=== PATIENT | female | born 1985 | race African-American/Black ===

== ENCOUNTER 2021-06-08 18:01 | Inpatient (IN) | payer BC ==
[2021-06-08] MEDS ORDERED: PROMETHAZINE 25 MG TAB PO PRN (18:50)
[2021-06-08] MEDS ORDERED: ONDANSETRON 4 MG/2 ML INJ IV PRN (18:50)
[2021-06-08] MEDS ORDERED: diphenhydrAMINE 50 MG/ML VIAL IV PRN (18:50)
[2021-06-08] MEDS ORDERED: NalbUPHINE 10 MG/1 ML INJ IV PRN (18:50)
[2021-06-08] MEDS ORDERED: NALOXONE 0.4 MG/1 ML INJ IV PRN ×2 (18:50→23:46)
[2021-06-08] MEDS ORDERED: HYDROmorphone 1 MG/1 ML INJ IV PRN (18:50)
[2021-06-08] MEDS ORDERED: PROMETHAZINE 25 MG RECT SUPP PR PRN (18:50)
[2021-06-08] MEDS ORDERED: FAMOTIDINE 20 MG/2 ML INJ IV ONE (18:51)
[2021-06-08] MEDS ORDERED: AZITHROMYCIN/NS 500 MG/250 ML 500 MG/250 ML BAG IV ONE (18:51)
[2021-06-08] MEDS ORDERED: BICITRA ORAL LIQD 30ML PO ONE (18:51)
[2021-06-08] MEDS ORDERED: METOCLOPRAMIDE 10 MG/2 ML INJ IV ONE (18:51)
[2021-06-08] MEDS ORDERED: OXYTOCIN DRIP 30 UNITS/500 ML BAG IV SCH ×2 (19:00→23:46)
[2021-06-08] MEDS ORDERED: ceFAZolin/Water 2 GM/20 ML 2 GM/20 ML SYRINGE IV NR (19:00)
[2021-06-08] MEDS ORDERED: LACTATED RINGERS 1,000 ML IV SCH (19:00)
--- NOTE | 2021-06-08 19:02 | History and Physical Report ---
History of Present Illness Date of examination: 06/08/21 Date of admission: 06/08/2021 Chief complaint: "I am having pains in my lower abdomen" History of present illness: EDC Confirmation: 06/18/2021 Past History : 4 Term Births: 2 Premature Births: 0 Living Children: 2 Para: 2 Mult. Births: 0 Prev : 2 Prev. attempt? none Aborta: 1 Elect. Ab: 0 Spont. Ab: 1 Ectopics: 0 # 1 Delivery date: 2012 Weeks Gestation: 38 Delivery type: Delivery location: [facility] Sex: Male weight: 3kg Comments: classical skin incision; unsure of uterine incision # 2 Delivery date: 2013 Weeks Gestation: 40 Delivery type: Delivery location: [facility] Infant Sex: Female weight: 2.5kg Comments: low BP, "received injections during delivery"; told not to conceive for 4-5 years # 3 Delivery date: 2017 Weeks Gestation: 10 Delivery type: SAB Delivery location: [facility] Comments: medically managed Family History Summary: Reviewed history and no changes required: 11/09/2020 Social History: Reviewed history and no changes required: Yarsanism Belief Affecting Care- prefers female providers, if possible Smoking History: Patient has never smoked. Past Medical History: Reviewed history and no changes required: Negative Past Medical History Past Surgical History: Reviewed history and no changes required: 2012 2014 Past Medical History Anesthesia Complications: negative Anemia: negative Autoimmune Disorder: negative Bleeding Disorder: negative Blood Transfusions: negative Breast Disease: negative Diabetes: negative Heart Disease: negative Hypertension: negative Hepatitis/Liver Disease: negative Kidney Disease/UTI: negative Neurologic/Epilepsy/Migraines: negative Phlebitis/Varicosities: negative Psychiatric: negative Pulmonary Disease/Asthma: negative Thyroid Disease: negative Hospitalizations: negative Surgery (Non-nursing officer): 2012 2014 Abnormal PAP: negative JAMEL Exposure: negative Infertility: negative Uterine Anomaly: negative Uterine Surgery (not C/S): negative Other Gynecologic Problems: negative Social Hx: Yarsanism Belief Affecting Care- prefers female providers, if possible Smoking History: Patient has never smoked. Infection History Hx of STD: none HIV Risk Eval: no Hepatitis B Risk Eval: low risk Personal hx. of genital herpes: no Partner hx. of genital herpes: no Rash, Viral, or Febrile illness since last LMP? no Varicella/Chicken Pox Status: Unknown TB Risk: no Genetic History Congenital Heart Defect: Mom: no Dad: no Eladio Disease: Mom: no Dad: no Thalassemia Mom: no Dad: no Neural Tube Defect Mom: no Dad: no Down's Syndrome Mom: no Dad: no Derik-Sachs Mom: no Dad: no Sickle Cell Disease/Trait Mom: no Dad: no Hemophilia Mom: no Dad: no Muscular Dystrophy Mom: no Dad: no Cystic Fibrosis Mom: no Dad: no Anjum Chorea Mom: no Dad: no Mental Retardation Mom: no Dad: no Fragile X Mom: no Dad: no Other Genetic/Chromosomal Disorder Mom: no Dad: no Child w/other defect Mom: no Dad: no Enviromental Exposures Enviromental Exposures Reviewed Xray Exposure: no Medication, drug, or alcohol use since LMP: no Chemical/Other Exposure: no Exposure to Cat Liter: no Hx of Parvovirus (Fifth Disease): no 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 Medications: None Current Allergies: No known allergies Past History Past Medical History: other (see HPI) Past Surgical History: other (see HPI) VP COMMUNICATIONS History: other (see HPI) Family/Genetic History: other (see HPI) Social history: other (see HPI) - Obstetrical History Expected Date of Delivery: 06/18/21 Actual Gestation: 38 Week(s) 4 Day(s) : 4 Para: 2 Hx # Term Pregnancies: 2 Number of Pregnancies: 0 Spontaneous Abortions: 1 Induced : 0 Number of Living Children: 2 Medications and Allergies Allergies Allergy/AdvReac Type Severity Reaction Status Date / Time No Known Allergies Allergy Unverified 06/08/21 18:28 Active Meds: Active Medications Citric Acid/Sodium Citrate (Bicitra Oral Liqd 30ml) 30 ml PO ONCE ONE Stop: 06/08/21 18:52 Diphenhydramine HCl (Diphenhydramine 50 Mg/Ml Vial) 12.5 mg IV Q2H PRN PRN Reason: Itching Famotidine (Famotidine 20 Mg/2 Ml Inj) 20 mg IV ONCE ONE Stop: 06/08/21 18:52 Hydromorphone HCl (Hydromorphone 1 Mg/1 Ml Inj) 0.5 mg IV Q4H PRN PRN Reason: breakthrough pain > 7/10 Azithromycin (Zithromax/Ns) 500 mg in 250 mls @ 250 mls/hr IV ONCE ONE; Protocol Stop: 06/08/21 19:50 Cefazolin Sodium (Ancef/Sterile Water 2 Gm/20 Ml) 2 gm in 20 mls @ 80 mls/hr IV PREOP NR; Protocol Lactated Ringer's (Lactated Ringers) 1,000 mls @ 2,250 mls/hr IV PREOP YANA Stop: 06/09/21 19:27 Oxytocin/Sodium Chloride (Pitocin/Ns 30 Unit/500ml) 30 units in 500 mls @ 0 mls/hr IV TITR YANA; Protocol Metoclopramide HCl (Metoclopramide 10 Mg/2 Ml Inj) 10 mg IV ONCE ONE Stop: 06/08/21 18:52 Nalbuphine HCl (Nalbuphine 10 Mg/1 Ml Inj) 2.5 mg IV Q2H PRN PRN Reason: Itching Naloxone HCl (Naloxone 0.4 Mg/1 Ml Inj) 0.2 mg IV Q2MIN PRN PRN Reason: Res Rate </= 8 or 02 SAT < 92% Ondansetron HCl (Ondansetron 4 Mg/2 Ml Inj) 4 mg IV Q8H PRN PRN Reason: Nausea And Vomiting Promethazine HCl (Promethazine 25 Mg Tab) 25 mg PO Q6H PRN PRN Reason: Nausea And Vomiting Promethazine HCl (Promethazine 25 Mg Rect Supp) 25 mg ND Q6H PRN PRN Reason: Nausea And Vomiting Review of Systems All systems: negative Genitourinary: contractions - Vital Signs Vital signs: Vital Signs Temp Resp 98.1 F 18 06/08/21 18:40 06/08/21 18:40 Temp Pulse Resp BP Pulse Ox 98.1 F 47 L 18 133/77 98 06/08/21 18:40 06/08/21 18:50 06/08/21 18:40 06/08/21 18:50 06/08/21 18:45 - Physical Exam Breasts: Positive: normal Cardiovascular: Regular rate Lungs: Positive: Normal air movement Abdomen: Positive: normal appearance, other (gravid) Genitourinary (Female): Positive: normal external genitalia, normal perenium Vulva: both: normal Vagina: Positive: normal moisture Uterus: Positive: normal size, normal contour Anus/Rectum: Positive: normal perianal skin Extremities: Positive: normal - Obstetrical FHR: auscultation normal, category 1 Uterine Contraction Monitor Mode: Palpation Cervical Dilatation: 3 Uterine Contraction Pattern: Regular Uterine Contraction Intensity: Moderate Results All other labs normal. Tests: (1) RPR, Rfx Qn RPR/Confirm TP ([id number]) RPR Non Reactive Non Reactive *1 Tests: (2) HIV Ag/Ab with Reflex ([id number]) HIV Screen 4th Generation wRfx Non Reactive Non Reactive *2 Tests: (1) Ct, Ng, Trich vag by BLAKE ([id number]) Order Note: Clinical Information: SRC:VR SRC:UR Chlamydia by BLAKE Negative Negative *1 Gonococcus by BLAKE Negative Negative *2 Trich vag by BLAKE Negative Negative *3 Tests: (2) Strep Gp B BLAKE ([id number]) ! Strep Gp B BLAKE Negative Negative *4 Tests: (1) Profile I ([id number]) Order Note: Clinical Information: SRC:UR HBsAg Screen Negative Negative *1 RPR Non Reactive Non Reactive *2 Rubella Antibodies, IgG 7.58 index Immune >0.99 *3 Non-immune <0.90 Equivocal 0.90 - 0.99 Immune >0.99 ABO Grouping O *4 Rh Factor Positive *5 Please note: Prior records for this patient's ABO / Rh type are not available for additional verification. Antibody Screen Negative Negative *6 WBC 7.3 x10E3/uL 3.4-10.8 *7 RBC [L] 3.70 x10E6/uL 3.77-5.28 *8 Hemoglobin [L] 10.3 g/dL 11.1-15.9 *9 Hematocrit [L] 31.2 % 34.0-46.6 *10 MCV 84 fL 79-97 *11 MCH 27.8 pg 26.6-33.0 *12 MCHC 33.0 g/dL 31.5-35.7 *13 RDW 13.1 % 11.7-15.4 *14 Platelets 176 x10E3/uL 150-450 *15 Neutrophils 72 % Not Estab. *16 Lymphs 20 % Not Estab. *17 Monocytes 7 % Not Estab. *18 Eos 1 % Not Estab. *19 Basos 0 % Not Estab. *20 ! Immature Cells <No Reported Value> *21 Neutrophils (Absolute) 5.2 x10E3/uL 1.4-7.0 *22 Lymphs (Absolute) 1.4 x10E3/uL 0.7-3.1 *23 Monocytes(Absolute) 0.5 x10E3/uL 0.1-0.9 *24 Eos (Absolute) 0.1 x10E3/uL 0.0-0.4 *25 Baso (Absolute) 0.0 x10E3/uL 0.0-0.2 *26 ! Immature Granulocytes 0 % Not Estab. *27 ! Immature Grans (Abs) 0.0 x10E3/uL 0.0-0.1 *28 ! NRBC <No Reported Value> *29 Hematology Comments: <No Reported Value> *30 Tests: (2) HB Solu + Rflx Frac ([id number]) Hemoglobin (Hgb) Solubility Negative Negative *31 Tests: (3) HIV Ag/Ab with Reflex ([id number]) HIV Screen 4th Generation wRfx Non Reactive Non Reactive *32 Tests: (4) HCV Ab w/Rflx to Verification ([id number]) ! HCV Ab <0.1 s/co ratio 0.0-0.9 *33 Tests: (5) Comment: ([id number]) ! Comment: SPRCS *34 Non reactive HCV antibody screen is consistent with no HCV infection, unless recent infection is suspected or other evidence exists to indicate HCV infection. Tests: (6) Urine Culture, Routine ([id number]) Urine Culture, Routine Final report *35 Tests: (7) Result ([id number]) ! Result 1 No growth *36 Ultrasound: report reviewed, image reviewed (in office on 06/06/21 EFW 14% 6lbs 2oz, MOON 12, vertex), other Assessment and Plan @38w4d [place] presents to triage with c/o regular painful contractions since 1000 today. SVE 3cm per RN, Cat 1 FHT's with regular contractions palpable at bedside. Pt with H/O delivery x2 in Jo and vertical skin incisional scar noted. POC d/w pt for delivery. Consents signed and in chart. Pt verbalizes understanding of risks including but not limited to infection, bleeding, trauma, compromise, and maternal and . Pt reports she does not desire sterilization at this time and declines tubal ligation. All questions and concerns addressed. Dr. Santa made aware. Plan to proceed with delivery. Orders placed in EMR. - Patient Problems (1) 38 weeks gestation of Current Visit: Yes Status: Acute (2) Maternal care for vertical scar from previous delivery Current Visit: Yes Status: Acute (3) Active labor Current Visit: Yes Status: Acute
[2021-06-08] MEDS ORDERED: ONDANSETRON 4 MG/2 ML INJ ONE ×2 (19:04)
[2021-06-08] MEDS ORDERED: KETOROLAC 30 MG/1 ML INJ ONE (19:04)
[2021-06-08] MEDS ORDERED: BUPIVACAINE/PF (0.5%) 5 MG/1 ML 30 ML VIAL INFILTRATI ONE (19:04)
[2021-06-08] MEDS ORDERED: dexAMETHasone 20 MG/5 ML VIAL ONE (19:04)
[2021-06-08] MEDS ORDERED: METOCLOPRAMIDE 10 MG/2 ML INJ ONE (19:06)
--- NOTE | 2021-06-08 19:14 | Anesthesia Day of Surgery ---
Anesthesia Day of Surgery - Day of Surgery Patient Examined: Yes Patient H&P Reviewed: Yes Patient is NPO: No (Patient had milk/bread @1500) Beta Blockers: No Cardiac Clearance: No Pulmonary Clearance: No Andrzej's Test: N/A
--- NOTE | 2021-06-08 19:14 | Anesthesia Consultation ---
Anesthesia Consult and Med Hx Date of service: 06/08/21 - Airway Anesthetic Teeth Evaluation: Good ROM Head & Neck: Adequate Mental/Hyoid Distance: Adequate Mallampati Class: Class I Intubation Access Assessment: Good - Pulmonary Exam CTA: Yes - Cardiac Exam Cardiac Exam: RRR - Pre-Operative Health Status ASA Pre-Surgery Classification: ASA2 Proposed Anesthetic Plan: Spinal Nerve Block: TAP - Pulmonary Hx Smoking: No Hx Asthma: No COPD: No Hx Pneumonia: No Hx Sleep Apnea: No - Cardiovascular System Hx Hypertension: No Hx Heart Attack/AMI: No Hx Angina: No - Central Nervous System Hx Seizures: No Hx Psychiatric Problems: No - Gastrointestinal Hx Gastroesophageal Reflux Disease: No - Endocrine Hx Renal Disease: No Hx End Stage Renal Disease: No Hx Liver Disease: No Hx Insulin Dependent Diabetes: No Hx Non-Insulin Dependent Diabetes: No Hx Hypothyroidism: No Hx Hyperthyroidism: No - Hematic Hx Anemia: No Hx Sickle Cell Disease: No - Other Systems Hx Alcohol Use: No
[2021-06-08 19:18] LABS: Basophils # (Auto) 0.1 K/mm3 (0.0-0.1); Basophils % (Auto) 0.5 % (0.0-1.8); Hematocrit 36.9 % (30.3-42.9); Hemoglobin 12.4 gm/dl (10.1-14.3); Mean Corpuscular HGB Conc 34 % (30-34); Mean Corpuscular Volume 80 fl (79-97); Monocytes # (Auto) 0.5 K/mm3 (0.0-0.8); Monocytes % (Auto) 3.4 % (0.0-7.3); Platelet Count 146 K/mm3 (140-440); Red Cell Distribution Width 14.4 % (13.2-15.2)
[2021-06-08] MEDS ORDERED: ceFAZolin/STERILE WATER 2 GM/20 ML SYRINGE IV ONE (19:38)
--- NOTE | 2021-06-08 19:48 | Event Note ---
Date: 06/08/21 Discussed with patient indication for . Patient informed the risks of the surgery include bleeding possibly bleeding heavy enough to require blood transfusion, infection possible damage to bowel bladder ureter. All questions answered. Patient agrees to proceed
[2021-06-08] MEDS ORDERED: ePHEDrine SULFATE 50 MG/1 ML INJ ONE (20:02)
[2021-06-08] MEDS ORDERED: LACTATED RINGERS 1,000 ML ONE (20:02)
--- NOTE | 2021-06-08 21:21 | Operative Report ---
Operative Report Operative Report: Date of procedure: June 08, 2021 Pre-operative diagnosis: Intrauterine at 38 weeks with previous section x2 with unknown uterine scar in active labor Post-operative diagnosis: Same Procedure name(s): Low transverse section with vertical skin incision through previous vertical skin scar Surgeon: Michael Pratt MD Basic Combatant Swimmer: Ade Cruz, certified nurse juvenile counselor Anesthesia: Spinal EBL: [] Complications: None Findings: Patient with uterus was scarred to the anterior abdominal wall and filmy adhesions between the uterus and the rectus muscles anteriorly male . Weight 5 pounds 13 ounces. Apgars 8 at 1 minute and 9 at 5 minutes Specimen(s): None Procedure: The patient was brought to the operating room. A spinal was placed without any complications. She was then placed in left lateral tilt. Prepped and draped in the usual sterile manner. After testing for adequate anesthesia level, a an elliptical incision was made around the vertical scar that was present, removing that scar. This incision was taken down to the fascia. The fascial revealed permanent suture which I cut with scissors and removed. The fascia incision was then cut vertically with care not to damage internal organs. Scar tissue were sharply and bluntly removed from the rectus muscle and the anterior uterus. The rectus muscles were bluntly and sharply . The peritoneum was then entered with the presto log operator's fingers. This incision was spread vertically with care not to damage the bladder below. Bladder blade was then placed. The bladder flap was then formed sharply and bluntly with Metzenbaum scissors. A transverse incision was made in lower uterine segment. This incision was extended laterally with the operators fingers. The amniotic sac was then entered bluntly with the presto log operator's fingers. The infant was delivered from the vertex position. Bulb suction on the mother's abdomen. Cord was double clamped and cut. The infant was then passed to the nursery personnel who were in attendance. The above scores were given by the [facility] personnel. The placenta was then bluntly removed. The uterus was then externalized after lysis of adhesions and wiped clean the remaining products. The uterine incision was closed in layers. The first incision was closed in a locking manner using 0 Vicryl. This was followed by imbricating stitch also with 0 Vicryl. This closure was hemostatic after additional [id number] sutures including 1 placed on the anterior fundus.. The bladder flap was copiously irrigated and found to be hemostatic. The pelvis was copiously irrigated and found to be hemostatic. The uterus was then placed back to the patient's abdomen. Surgicel was placed along the uterine closure and the fundal repair of the serosa area. The retractors were removed. The rectus muscles were inspected and found to be hemostatic. The fascia was then closed in a running manner using 0 Vicryl. This incision was hemostatic irrigation Bovie. DM space under the skin incision was then reapproximated with 0 Vicryl. The skin was reapproximated with 4-0 Vicryl subcuticularly. Dermabond was placed on the incision. The patient tolerated procedure well. Her urine was clear. The infant was admitted to the [well baby] nursery. The patient was accompanied to recovery room in good condition. Instrument count correct x3.
--- NOTE | 2021-06-08 21:21 | Progress Note ---
Spinal Anesthesia Block - Spinal Anesthesia Block Start Time: 19:38 Stop Time: 19:50 Performed by:: ACACIA POP Procedure: Spinal anesthesia block is being performed for [C/S]. H&P, labs have been reviewed. Patient's questions and concerns have been answered. Informed consent has been performed. Timeout has was performed. Patient in sitting position on side of bed. Sterile prep and drape was performed. 3 mL 1% lidocaine skin wheal at L [3]-L [4]. Needle introducer advanced. 25-gauge spinal needle advanced, [+] CSF [-] blood. [Marcaine 10mg and Precedex 5mcg] Spinal dose was given. All needles removed. Patient tolerated procedure well.
[2021-06-08] MEDS ORDERED: WITCH HAZEL/ GLYCERIN PAD TP PRN (23:46)
[2021-06-08] MEDS ORDERED: MAGNESIUM HYDROXIDE (MOM) ORAL LIQD UDC PO PRN (23:46)
[2021-06-08] MEDS ORDERED: HYDROCORTISONE 25 MG RECTAL SUPP PR PRN (23:46)
[2021-06-08] MEDS ORDERED: oxyCODONE /ACETAMINOPHEN 5-325MG TAB PO PRN (23:46)
[2021-06-08] MEDS ORDERED: LANOLIN/ZINC/DIMETHICONE (LANSINOH) 7 GM TP PRN (23:46)
[2021-06-08] MEDS ORDERED: SENNOSIDES 8.6 MG TAB PO PRN (23:46)
[2021-06-09] MEDS: KETOROLAC 30 MG/1 ML INJ IV SCH ×4 (00:05→19:00)
[2021-06-09] MEDS: D5W/LACTATED RINGERS 1,000 ML IV SCH ×2 (00:05→08:30)
[2021-06-09] MEDS: ceFAZolin/NS 1 GM/50 ML 1 GM/50 ML BAG IV SCH ×2 (02:58→10:54)
--- NOTE | 2021-06-09 09:44 | Progress Note ---
Assessment and Plan Pt sitting in bed with sister present at bedside. No complaints verbalized. VSS and H&H stable postop; Fundus firm with scant vaginal bleeding noted on juan manuel- pad; incision healing well, dry and intact. POC d/w pt and postop pathway expectations encouraged. All questions and concerns addressed. - Patient Problems (1) delivery delivered Current Visit: Yes Status: Acute Plan to address problem: continue postop pathway Subjective - Subjective Date of service: 06/09/21 Principal diagnosis: POD #1 Interval history: EDC Confirmation: 06/18/2021 Past History : 4 Term Births: 2 Premature Births: 0 Living Children: 2 Para: 2 Mult. Births: 0 Prev : 2 Prev. attempt? none Aborta: 1 Elect. Ab: 0 Spont. Ab: 1 Ectopics: 0 # 1 Delivery date: 2012 Weeks Gestation: 38 Delivery type: Delivery location: [facility] Infant Sex: Male weight: 3kg Comments: classical skin incision; unsure of uterine incision # 2 Delivery date: 2013 Weeks Gestation: 40 Delivery type: Delivery location: [facility] Sex: Female weight: 2.5kg Comments: low BP, "received injections during delivery"; told not to conceive for 4-5 years # 3 Delivery date: 2017 Weeks Gestation: 10 Delivery type: SAB Delivery location: [facility] Comments: medically managed Family History Summary: Reviewed history and no changes required: 11/09/2020 Social History: Reviewed history and no changes required: Nondenominational Belief Affecting Care- prefers female providers, if possible Smoking History: Patient has never smoked. Past Medical History: Reviewed history and no changes required: Negative Past Medical History Past Surgical History: Reviewed history and no changes required: 2012 2014 Past Medical History Anesthesia Complications: negative Anemia: negative Autoimmune Disorder: negative Bleeding Disorder: negative Blood Transfusions: negative Breast Disease: negative Diabetes: negative Heart Disease: negative Hypertension: negative Hepatitis/Liver Disease: negative Kidney Disease/UTI: negative Neurologic/Epilepsy/Migraines: negative Phlebitis/Varicosities: negative Psychiatric: negative Pulmonary Disease/Asthma: negative Thyroid Disease: negative Hospitalizations: negative Surgery (Non-obstetrician/gynecologist): 2012 2014 Abnormal PAP: negative JAMEL Exposure: negative Infertility: negative Uterine Anomaly: negative Uterine Surgery (not C/S): negative Other Gynecologic Problems: negative Social Hx: Nondenominational Belief Affecting Care- prefers female providers, if possible Smoking History: Patient has never smoked. Infection History Hx of STD: none HIV Risk Eval: no Hepatitis B Risk Eval: low risk Personal hx. of genital herpes: no Partner hx. of genital herpes: no Rash, Viral, or Febrile illness since last LMP? no Varicella/Chicken Pox Status: Unknown TB Risk: no Genetic History Congenital Heart Defect: Mom: no Dad: no Eladio Disease: Mom: no Dad: no Thalassemia Mom: no Dad: no Neural Tube Defect Mom: no Dad: no Down's Syndrome Mom: no Dad: no Derik-Sachs Mom: no Dad: no Sickle Cell Disease/Trait Mom: no Dad: no Hemophilia Mom: no Dad: no Muscular Dystrophy Mom: no Dad: no Cystic Fibrosis Mom: no Dad: no [place] Chorea Mom: no Dad: no Mental Retardation Mom: no Dad: no Fragile X Mom: no Dad: no Other Genetic/Chromosomal Disorder Mom: no Dad: no Child w/other defect Mom: no Dad: no Enviromental Exposures Enviromental Exposures Reviewed Xray Exposure: no Medication, drug, or alcohol use since LMP: no Chemical/Other Exposure: no Exposure to Cat Liter: no Hx of Parvovirus (Fifth Disease): no 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 Medications: None Current Allergies: No known allergies Patient reports: appetite normal, pain well controlled, no appetite poor, no pain poorly controlled, no nauseated [place]: doing well ( at bedside with RN, SGA and having difficulty with BG regulation), bottle feeding Objective - Vital Signs Latest vital signs: Vital Signs Temp Pulse Resp BP BP Pulse Ox Pulse Ox 06/09/21 09:04 97.8 F 69 18 120/76 100 06/09/21 07:10 18 06/09/21 06:40 18 06/09/21 04:00 98.6 F 77 16 102/78 06/09/21 00:35 18 06/09/21 00:05 18 06/08/21 23:20 97.4 F L 60 18 129/79 100 100 06/08/21 22:00 60 12 139/85 100 06/08/21 21:45 66 20 128/65 100 06/08/21 21:35 64 16 141/87 100 06/08/21 21:25 70 16 133/55 06/08/21 21:20 64 14 133/61 100 06/08/21 21:15 97.7 F 82 16 121/68 100 06/08/21 19:12 82 120/79 06/08/21 18:50 47 L 133/77 06/08/21 18:45 98 06/08/21 18:40 98.1 F 18 Intake and Output 06/08/21 06/09/21 06/09/21 23:59 07:59 15:59 Intake Total 1100 360 Output Total 1000 Balance 1100 -640 Intake: IV 1100 Intake, Free Water 360 Output: Urine 1000 Indwelling Catheter 1000 Other: Total, Output Amount 1000 # Voids Void 1 Weight 105 lb Estimated Blood Loss 250 - Exam Breasts: Present: normal Cardiovascular: Present: Regular rate Lungs: Present: Normal air movement Abdomen: Present: normal appearance, soft Vulva: both: normal Uterus: Present: normal, firm, fundal height below umbilicus Extremities: Present: normal Incision: Present: normal, dry, intact - Labs Labs: Abnormal lab results 06/08/21 Range/Units 19:00 WBC 14.2 H (4.5-11.0) K/mm3 MCH 27 L (28-32) pg Lymph % (Auto) 7.0 L (13.4-35.0) % Lymph # (Auto) 1.0 L (1.2-5.4) K/mm3 Seg Neutrophils % 89.1 H (40.0-70.0) % Seg Neutrophils # 12.6 H (1.8-7.7) K/mm3
[2021-06-09 09:50] LABS: Hematocrit 31.8 % (30.3-42.9); Hemoglobin 10.6 gm/dl (10.1-14.3)
[2021-06-09] MEDS ORDERED: FERROUS SULFATE 325 MG TAB PO SCH (10:00)
[2021-06-09] MEDS ORDERED: PRENATAL VIT27-FE FUMARATE-FOLIC ACID VIT TAB PO SCH (10:00)
[2021-06-09] MEDS ORDERED: IBUPROFEN 800 MG TAB PO PRN (12:00)
--- NOTE | 2021-06-09 16:23 | Post Anesthesia Evaluation ---
- Post Anesthesia Evaluation Patient Participated: Yes Airway Patent: Yes Stable Respiratory Function: Yes Nausea/Vomiting: No Temp > 96.8F: Yes Pain Manageable: Yes Adequeate Hydration: Yes Anesthesia Complications: No Block Receding Appropriately: Yes Patient on Ventilator: No
[2021-06-09] MEDS ORDERED: IBUPROFEN 600 MG TAB PO PRN (21:22)
--- NOTE | 2021-06-10 13:30 | Discharge Summary ---
Providers - Providers Date of Admission: 06/08/21 20:40 Date of discharge: 06/10/21 Attending physician: RUMA STEIN 06/08/21 23:46 Consult to [facility] [CONS] Routine Reason For Exam: Primary care physician: RUMA STEIN Hospitalization Reason for admission: active labor Delivery: Procedure: repeat low transverse Episiotomy: none Laceration: none Incision: normal, dry, intact, other (Vertical incision on skin intact. ) Other procedures: none complications: none Discharge diagnosis: IUP at term delivered [place] baby: male Hospital course: S: Patient is doing well and wants to go home. Ambulating, voiding, and passing flatus okay. O: VSS. Adequate I&O's. Vertical skin incision open to air, intact, no s/sx of infection and no drainage noted. H/H 10.6/31.8. A: 36 y.o. s/p rpt , now and in good condition and can be discharged home. P: Discharge home with instructions. Pt to schedule incision check in office in 1 week. Pt to schedule son's circumcision in office in 1 week. Condition at discharge: Good Disposition: 01 HOME / SELF CARE / HOMELESS Plan - Discharge Medications Prescriptions: Lidocain2.5%/Prilocai2.5% [Emla] 5 gm TP ONCE #1 tube Ferrous Sulfate [Feosol 325 MG tab] 325 mg PO BID #60 tablet Ibuprofen [Motrin 800 MG tab] 800 mg PO Q6H PRN #30 tablet PRN Reason: Pain Ibuprofen [Motrin] 800 mg PO TID PRN #30 tablet PRN Reason: Pain oxyCODONE /ACETAMINOPHEN [Percocet 5/325 mg] 1 - 2 tab PO Q6HR PRN #20 tablet PRN Reason: Pain - Provider Discharge Summary Activity: routine, no sex for 6 weeks, no heavy lifting 4 weeks, no strenuous exercise Diet: routine Instructions: routine Additional instructions: [] Smoking cessation referral if applicable(refer to patient education folder for contact #) [] Refer to [facility]'s [facility] Booklet Call your doctor immediately for: * Fever > 100.5 * Heavy vaginal bleeding ( >1 pad per hour) * Severe persistent headache * Shortness of breath * Reddened, hot, painful area to leg or breast * Drainage or odor from incision. * Keep incision clean and dry at all times and follow doctor's instructions regarding bathing/showering Congratulations on the of your baby boy. Please schedule your son's circumcision in 1 week. You have been prescribed EMLA cream for your son's circumcision. Please do not use this cream at home, but bring it with you to your son's circumcision appoin tment. Should you have any questions or concerns after discharge, please do not hesitate to call the office at [phone]. - Follow up plan Follow up: RUMA STEIN MD [Primary Care Provider] - 7 Days
[2021-06-10 16:39] VITALS: BP 110/74
== END 2021-06-10 18:34 | disposition home or self-care (01) | DRG 788 ==
LOC: TRG 18:01 → APU 18:02 → TRG 20:37 → APU 20:40 → OB 23:16
PROVIDERS: ADMIT Obstetrics & Gynecology; ATTEND Obstetrics & Gynecology
PROC: 10D00Z1 Extraction of Products of Conception, Low, Open Approach (ICD-10-PCS; principal; 2021-06-08)
DX: O34.211 Maternal care for low transverse scar from previous cesarean delivery (principal); Z3A.38 38 weeks gestation of pregnancy; Z37.0 Single live birth
CPT/HCPCS: 36415; 59025; 85014; 85018; 85025; 86850; 86900; 86901; G0378; C1765; J0690; J1100; J1885; J2405; J2765; J3490; J7120; J7121; U0003